=== PATIENT | female | born 1960 | race Caucasian/White ===

== ENCOUNTER 2017-09-20 10:24 | Outpatient (CLI) | payer BC | END 2017-09-20 10:25 | disposition home or self-care (01) | LOC: BICMAMMO 10:24 | PROVIDERS: ATTEND Internal Medicine Geriatric Medicine | DX: Z12.31 Encounter for screening mammogram for malignant neoplasm of breast (principal); N64.89 Other specified disorders of breast | CPT/HCPCS: 77063; 77067 ==

== ENCOUNTER 2017-09-22 13:02 | Outpatient (CLI) | payer BC | END 2017-09-22 13:03 | disposition home or self-care (01) | LOC: BICMAMMO 13:02 | PROVIDERS: ATTEND Internal Medicine Geriatric Medicine | DX: R92.2 Inconclusive mammogram (principal); N63.10 Unspecified lump in the right breast, unspecified quadrant | CPT/HCPCS: G0279 ==

== ENCOUNTER 2018-03-25 16:26 | Outpatient (CLI) | payer BC ==
--- NOTE | 2018-03-25 16:57 | RAD ---
LEFT HAND THREE VIEWS: 03/25/18 HISTORY: Left hand injury. FINDINGS: Scattered mild osteoarthritic changes with joint space narrowing. No acute fracture, dislocation, or radiopaque foreign bodies are evident. Mild ulna negative variance. IMPRESSION: No acute osseous abnormalities are demonstrated. POS: [facility]
== END 2018-03-25 16:27 | disposition home or self-care (01) ==
LOC: BICRAD 16:26
PROVIDERS: ATTEND Internal Medicine Geriatric Medicine
DX: M79.642 Pain in left hand (principal)

== ENCOUNTER 2018-04-11 14:53 | Outpatient (CLI) | payer BC | END 2018-04-11 14:54 | disposition home or self-care (01) | LOC: BICMAMMO 14:53 | PROVIDERS: ATTEND Internal Medicine Geriatric Medicine | DX: R92.8 Other abnormal and inconclusive findings on diagnostic imaging of breast (principal) | CPT/HCPCS: G0279 ==